=== PATIENT | male | born 2000 | race Caucasian/White ===

== ENCOUNTER 2018-06-09 11:43 | Inpatient (IN) ==
[2018-06-09] MEDS ORDERED: *HR* Midazolam HCl 2 MG/2 ML VIAL ONE (13:49)
[2018-06-09] MEDS ORDERED: Lidocaine -MPF 2% 2 ML VIAL ONE (13:49)
[2018-06-09] MEDS ORDERED: *HR* Propofol 200 MG/20 ML VIAL IVP ONE (13:49)
[2018-06-09] MEDS ORDERED: *HR* FentaNYL (PF) 100 MCG/2 ML VIAL ONE (13:49)
[2018-06-09] MEDS ORDERED: Ondansetron 4 MG/2 ML VIAL ONE (13:51)
[2018-06-09] MEDS ORDERED: Dexamethasone 4 MG/ML VIAL ONE (13:51)
[2018-06-09] MEDS ORDERED: Bupivacaine/EPI 1:200k 0.25%PF 10 ML VIAL INFILT ONE (13:55)
--- NOTE | 2018-06-09 13:58 | Anesthesia Evaluation PreOp ---
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 Other Medical History: Denies Any Significant HX Alcohol Use: none Drug use: none Medications and Allergies No Known Home Drugs 06/09/18 [History] Allergy/AdvReac Type Severity Reaction Status Date / Time No Known Allergies Allergy Verified 06/09/18 09:45 - Meds/Allergy Pre-op Review Medications Reviewed: Yes Allergies Reviewed: Yes Beta Blockers on Current Med List: No Anesthesia Results - Labs Laboratory Tests 06/09/18 06/09/18 11:05 11:05 Hgb 14.7 Hct 43.5 Plt Count 215 Sodium 140 Potassium 4.3 BUN 20 Creatinine 0.86 Anesthesia Exam Selected Entries 06/09/18 13:17 06/09/18 13:40 Temperature 98.7 F 97.6 F Pulse Rate 78 72 Respiratory Rate 18 16 Blood Pressure 128/78 120/71 O2 Sat by Pulse Oximetry 99 100 Weight: 78kg BMI23 - HEENT Pupil (Motor): EOMI Mallampati: II Teeth: Normal Oral Opening: Greater than 3 - PHYSICAL CHEMISTRY TEACHER LOC: Oriented PHYSICAL CHEMISTRY TEACHER Motor: Normal RUE, Normal LUE, Normal RLE, Normal LLE, Normal Face PHYSICAL CHEMISTRY TEACHER Sensory: Normal: RUE, LUE, RLE, LLE, Face - Cardiac Rhythm: Regular Murmur: None - Pulmonary Breath Sounds: bilateral Clear Respiratory Effort: Symmetrical Anesthesia Assess/Plan ASA Score: 1 Level of consciousness: Cooperative, Oriented, Tranquil Anesthetic Plan: General Monitoring Plan: Standard Monitors Recovery Plan: PACU (agrees to GA)
--- NOTE | 2018-06-09 14:06 | Podiatry Consult Note ---
Date of Encounter: 06/09/18 Time of Encounter: 13:15 Assessment and Plan (1) Open fracture Current visit: Yes Status: Acute I had a thorough review with the patient regarding his injury/condition, my findings, and his treatment options. We discussed the current condition of the toe and physical exam as well as his x-ray and the open fracture which is present. We discussed debridement of bone and soft tissue and amputation of the distal end of the right hallux which does not appear viable. He will continue IV antibiotics. Nature of the above procedure, risks first benefits potential complications consequences of surgery and his condition discussed at length including but not limited to infection bleeding swelling numbness tingling or loss of complete toe, partial foot or leg heart attack pulmonary embolism loss of functionality blood clot wound healing problems lack of procedure to produce desired outcome need for further surgery etc. We did discuss that he could require multiple trips to the operating room. He was also made aware that he will have a wound at the end of his toe which will need to heal. No guarantees were made as to the outcome of any procedure. All of his questions were answered and the informed consent was signed. Patient in agreement with treatment plan. Patient last ate or drank around 6:00 this morning. Patient being brought to the operating room for the above procedure. (2) Partial traumatic amputation of great toe Current visit: Yes Status: Acute see above History of Present Illness Chief complaint: right big toe injury HPI: Mr. Holt is a 17 year old male who denies a past medical history sustained an injury this morning at work at approximately 8:40 AM when a heavy piece of equipment was dropped on his foot. He says it hit the end of his foot and he had his shoe on. He did not have still toe boots on at the time. He says there was immediate pain and a lot of bleeding and he was brought to the emergency room in [place] by ambulance. X-rays were done and he was found to have an open fracture of the distal phalanx of the hallux and the ER had called me stating that the end of his toe was barely attached and that the bone was fractured. They put him in a bandage and transferred him to [facility]. Upon his arrival the nurse practitioner and myself went to examine him. He did receive IV antibiotics in [place]. Per ER he refused a tetanus shot. Patient relates he has numbness in the tip of the toe and he cannot feel the right big toe. Denies feeling like he has a fever, chills, nausea, vomiting, shortness of breath, chest pain. Past Med Surg Social Fam HX - Past Medical History Medical history: no medical history Additional medical history: right elbow fracture when patient was younger Psychiatric history: no psych history - Past Surgical History Surgical History: no surgical history - Social History Smoking Status: Light tobacco smoker Smokeless Tobacco Status: Yes Alcohol use: none Drug use: none - Family History Father Hx Family Endocrine Disorder: Yes (diabetes) Medications and Allergies No Known Home Drugs 06/09/18 [History] Allergy/AdvReac Type Severity Reaction Status Date / Time No Known Allergies Allergy Verified 06/09/18 09:45 All Systems Reviewed: The remainder of the systems were reviewed and are negative - Constitutional Constitutional: no fever(s) - Cardiovascular Cardiovascular: no chest pain, no dyspnea - Respiratory Respiratory: no cough - Musculoskeletal Musculoskeletal: numbness, tingling, other (pain right big toe) Additional comments: bleeding Physical Exam - Constitutional Vitals: Temp Pulse Resp BP Pulse Ox 97.6 F 72 16 120/71 100 06/09/18 13:40 06/09/18 13:40 06/09/18 13:40 06/09/18 13:40 06/09/18 13:40 General appearance: average body habitus, no acute distress - Head Head exam: Present: atraumatic - ENT ENT exam: Present: mucous membranes dry, mucous membranes moist - Respiratory Respiratory exam: Absent: respiratory distress, tachypnea - Cardiovascular Cardiovascular exam: Present: +S1, +S2 - Psychiatric Psychiatric exam: Present: normal affect, normal mood - Skin Skin Temperature: right big toe is cool to touch - Vascular Capillary Refill: Sluggish (to distal tip of right big toe) - Ankle & Foot Exam: Well-developed and nourished male in distress Capillary refill time is intact to the right for lesser digits and is instantaneous. The hallux distal tip has bluish discoloration and a sluggish capillary refill time. The hallux has a very small attachment of skin on the plantar aspect of the foot with laceration extending around the distal tuft of the right hallux and exposed bone of the distal phalanx. No purulence is expressed. There is cyanotic appearance of the distal tissue which is not attached proximally at the margins of skin. Sensation is absent to touch in the right hallux. There is bleeding present at the distal tip of the right hallux and bandage was saturated. Results - Labs Labs: All other labs normal. Consult Discharge Plan - Plan Referrals: NONE,PCP [Primary Care Provider] -
--- NOTE | 2018-06-09 14:20 | Operative Note ---
Date of procedure: 06/09/18 Pre-op diagnosis: open fracture right great toe, partial traumatic amputation of hallux Post-op diagnosis: same Procedure: Partial amputation of right great toe at the interphalangeal joint level excisional debridement of soft tissue and bone right hallux Implants: none Complications: none Anesthesia: GETA Local Anesthetics: 1% Lidocaine HCL SubQ (cc) Surgeon: Emir Ramos Was there an showroom sales assistant present: No Estimated blood loss (cc): 20 Specimen: right great toe soft tissue and bone-micro and path, culture swab- micro Condition: stable Disposition: PACU Procedure in Detail: Indications: 17-year-old male injured at work with a partially amputated hallux and open fracture of the right hallux distal phalanx being brought to the operating room for partial amputation of the right hallux and debridement of tissue and possibly bone. Nature of the procedures, risks versus benefits potential complications and consequences of surgery and his condition discussed at length. No guarantees were made as to the outcome. He understood that he could require multiple trips to the operating room and his hallux may not be salvageable. All of his questions have been answered informed consent was signed. Patient taken from the preoperative holding area and operating room placed in the operating room table in the supine position. 15 mL of 1% lidocaine plain was injected into the patient's right foot. An ankle tourniquet was applied but not inflated during the entire procedure. The right foot was scrubbed prepped and draped in the usual sterile fashion Amputation right hallux at the level of the interphalangeal joint right foot. Attention was directed to the distal aspect of the patient's right hallux where the toe was partially amputated due to the injury. The nail plate was completely destroyed and dislodged and the distal aspect of the toe was barely hanging on by a small piece of soft tissue plantar laterally. There was bleeding from the proximal site. The distal aspect of the hallux was cold and had some discoloration. The 15 blade was used to resect the distal end of the hallux and a piece was sent to microbiology and the rest to pathology. Bone was debrided from the fracture zone and smoothed with a rasp. The site was irrigated with saline which contained vancomycin. The distal aspect of the toe had been amputated as well as surrounding margins of skin. Debridement of deep tissue and tendon. With the distal aspect of the hallux amputated the open wound from the traumatic injury had some evidence of nonviable tissue which was debrided sharply with a #15 blade until there was healthy bleeding tissue. The flexor and extensor tendon was resected as far proximally in the wound as possible. The Bovie was used to cauterize bleeding tissue. Upon reinspection after flushing the site the remaining tissue appeared to be viable and healthy as were the skin margins which did exhibit bleeding. No purulent drainage was able to be expressed. A retention suture using 3-0 Prolene was placed and the site was packed open with gauze. Postoperative bandaging included Adaptic, 4 x 4 gauze and Kerlix. The patient tolerated the anesthesia and the procedure well escorted to the recovery room with vital signs stable and vascular status intact to the remaining hallux and lesser digits. Patient will return to the floor where he will continue IV antibiotics.
[2018-06-09] MEDS ORDERED: EPHEDrine 50 MG/ML VIAL ONE (14:36)
[2018-06-09] MEDS ORDERED: Vancomycin 1,000 MG VIAL ONE (14:42)
[2018-06-09] MEDS ORDERED: *HR* HYDROcodone/Acet 5/325 mg TABLET PO PRN ×2 (14:58→16:17)
[2018-06-09] MEDS ORDERED: CeFAZolin Syr 2,000MG/20 ML 2,000 MG/20 ML SYRINGE IVPB ONE (15:12)
[2018-06-09] MEDS ORDERED: Naloxone 0.4 MG/ML INJ IVP PRN ×2 (15:53→16:17)
--- NOTE | 2018-06-09 15:59 | Internal Med History&Physical ---
<Jay Velázquezuma - Last Filed: 06/09/18 15:56> Date of Encounter: 06/09/18 Time of Encounter: 15:57 Internal Medicine - H&P: HPI Chief complaint: Right big toe injury Admitted From: Emergency Dept Plans for Post Hospital Care: Home History of present illness: Mr. Holt is a 17 year old male presented chief complaint right big toe injury to [facility]. Patient was working with a heavy equipment when he fell on his right foot and he had immediate pain. He was brought to [place] emergency department and x-rays found soft tissue defect at the distal first toe with open, displaced oblique fracture of the first distal phalangeal tuft. Patient was evaluated by podiatry and was quickly transferred to [facility] for surgery. He underwent partial amputation of the right great toe and excisional debridement of soft tissue and bone right hallux. He received cefoxitin and [place] emergency department. He refuses tetanus shot. During my evaluation patient was in the PACU. He was still heavily sedated and I could not ask many questions. Past Med Surg Social Fam HX - Past Medical History Medical history: no medical history Additional medical history: right elbow fracture when patient was younger Psychiatric history: no psych history - Past Surgical History Surgical History: no surgical history - Social History Smoking Status: Light tobacco smoker Smokeless Tobacco Status: Yes Alcohol use: none Drug use: none - Family History Father Hx Family Endocrine Disorder: Yes (diabetes) Internal Medicine - H&P: Meds RX: No Known Home Drugs 06/09/18 [History] Allergy/AdvReac Type Severity Reaction Status Date / Time No Known Allergies Allergy Verified 06/10/18 08:18 All Systems PM: A 10-system review of systems was performed and is negative for pertinent findings except as documented above in the HPI. Review of systems: Did not get review systolic patient was sedated after surgery. - Constitutional Vitals: Temp Pulse Resp BP Pulse Ox 98.2 F 75 13 97/44 94 06/09/18 15:47 06/09/18 15:47 06/09/18 15:47 06/09/18 15:47 06/09/18 15:47 Exam: General: Sedated after surgery HEENT: Head atraumatic, normocephalic, absent ear discharge or trauma, Moist Mucous Membranes, uvula midline Neck: nontender to palpation, absent lymphadenopathy, Cardiovascualr: Regular rate and rhythm with no murmur, absent gallops or rubs, absent pedal edema, radial pulses 2 out of 4 Lungs: Clear to auscultation bilaterally, not in respiratory distress Abdomen: Soft nontender, nondistended positive bowel sounds, absent hepatomegaly Skin: warm and dry, absent rash, absent open wounds and nodules MSK: absent clubbing, cyanosis, joints without swelling. Right foot and a bandage Neuro: Patient is sedated could not examine Psych: Patient is sedated cannot be examined. - Assessment and Plan (1) Open fracture Current Visit: Yes Status: Acute Assessment and plan: Patient had right toe open fracture Status post partial right toe amputation. Surgical biopsy, Gram stain and anaerobic and aerobic cultures were obtained He did not meet SIRS criteria He received cefoxitin and [place] emergency room and cefazolin during surgery. Plan: We will continue monitor vitals and repeat CBC and BMP. If patient has sinus infection or surgical cultures are positive will start antibiotics. (2) DVT prophylaxis Current Visit: Yes Status: Acute Assessment and plan: Hypertensive subcutaneous. - Time Spent With Patient Total time spent is greater than 50% in coordination of care (as documented) at patient's floor/unit and/or counseling patient: <Celeste Parham Cisco - Last Filed: 06/11/18 15:57> Date of Encounter: 06/09/18 Internal Medicine - H&P: HPI History of present illness: Mr. Holt is a 17 year old male All Systems PM: A 10-system review of systems was performed and is negative for pertinent findings except as documented above in the HPI. - Constitutional Vitals: Temp Pulse Resp BP Pulse Ox 98.0 F 86 17 112/69 100 06/11/18 11:34 06/11/18 11:34 06/11/18 11:34 06/11/18 11:34 06/11/18 11:34 Internal Med - H&P Results - Labs CBC & Chem 7: 06/11/18 06:51 06/10/18 06:10 Labs: Short CBC 06/11/18 Range/Units 06:51 WBC 9.7 (4.3-11.1) K/mcL Hgb 13.9 (12.9-16.9) g/dL Hct 39.8 (37.5-50.1) % Plt Count 181 (140-400) K/mcL - Impressions ITS Impressions Foot X-Ray 06/09/18 16:58 IMPRESSION: Status post partial amputation the distal phalanx of the right great toe. D/ / Juliann Mejia Cha, MD / Juliann Mejia Cha, MD Interpreting Provider: Juliann Mejia Cha, MD - Time Spent With Patient Total time spent is greater than 50% in coordination of care (as documented) at patient's floor/unit and/or counseling patient: - Attending Attestation I saw and evaluated the patient. The case was discussed on rounds with . I personally reviewed the HPI, PH, FH, SH, ROS and medications. I repeated pertinent portions of the examination and reviewed the relevant imaging and laboratory data. I agree with the findings, assessment and plan as documented. At this time, based on the current clinical condition and treatment.
--- NOTE | 2018-06-09 16:32 | Anesthesia Evaluation Post Op ---
Date of Encounter: 06/09/18 Time of Encounter: 16:00 - Vital Signs Vital Signs: Vital Signs/O2 Sat/Glucose, Most Current Temp Pulse Resp BP Pulse Ox 06/09/18 16:15 97.8 F 85 12 104/58 96 06/09/18 15:47 98.2 F 75 13 97/44 94 06/09/18 15:37 98.2 F 72 17 105/49 94 06/09/18 15:27 74 13 96/45 93 06/09/18 15:17 68 13 89/42 98 06/09/18 15:07 97.4 F L 70 12 85/46 99 06/09/18 13:17 98.7 F 78 18 128/78 99 - Lungs Lungs: Clear Ascult./Percussion - Airway Airway: Non-obstructed - Cardiovascular Regular Rate - Mental Status Mental Status: Alert & Oriented, Answers Appropriately - Pain Pain Scale: 0 - Nausea Vomiting Nausea Vomiting: Not Present - Hydration Hydration: Ice chips - Discharge PostOp Status: Transfer Patient to floor
[2018-06-09] MEDS: Ketorolac 15 MG/ML VIAL IVP PRN (20:58)
[2018-06-09] MEDS ORDERED: *HR* Heparin 5,000 UNIT/ML VIAL SQ SCH (22:00)
[2018-06-09] MEDS: ceFAZolin 2,000 MG in 0.9 % Sodium Chloride 100 ML IVPB SCH (22:36)
[2018-06-09] MEDS: *HR* OxyCODONE/APAP 5/325 TABLET PO PRN (23:02)
[2018-06-10] MEDS ORDERED: ceFAZolin 2,000 MG in 0.9 % Sodium Chloride 100 ML IVPB SCH
[2018-06-10] MEDS: Ketorolac 15 MG/ML VIAL IVP PRN (02:47)
[2018-06-10 06:32] LABS: Basophils % 0.2 %; Hematocrit 40.6 % (37.5-50.1); Hemoglobin 14.1 g/dL (12.9-16.9); Immature Granulocytes % 0.5 % (0-4); Lymphocytes # 1.2 K/mcL (0.6-4.6); Lymphocytes % 6.7 %; Mean Corpuscular HGB Conc 34.7 g/dL (31.6-35.5); Mean Corpuscular Hemoglobin 30.7 pg (28.0-33.3); Mean Corpuscular Volume 88.5 fL (83.0-100.0); Mean Platelet Volume 10.2 fL (9.4-12.4); Monocytes # 0.8 K/mcL (0.0-1.3); Monocytes % 4.6 %; Neutrophils # 15.1 K/mcL (1.6-8.9); Platelet Count 232 K/mcL (140-400); Red Blood Count 4.59 M/mcL (4.19-5.50); Red Cell Distribution Width 11.8 % (11.5-14.5)
[2018-06-10 06:51] LABS: BUN/Creatinine Ratio 25 (6-26); Blood Urea Nitrogen 17 mg/dL (6-20); Calcium 9.2 mg/dL (8.6-10.3); Carbon Dioxide 25 mEq/L (23-29); Chloride 102 mEq/L (98-107); Glucose 138 mg/dL (70-105); Osmolality,Calculated 286 (280-300); Potassium 4.3 mEq/L (3.5-5.1); Sodium 136 mEq/L (136-145); eGFR For Non-African Americans > 60
[2018-06-10] MEDS: *HR* OxyCODONE/APAP 5/325 TABLET PO PRN ×2 (09:02→20:58)
[2018-06-10] MEDS: ceFAZolin 2,000 MG in 0.9 % Sodium Chloride 100 ML IVPB SCH ×2 (09:13→16:48)
[2018-06-10] MEDS ORDERED: *HR* OxyCODONE/APAP 10/325 TABLET PO ONE (10:02)
--- NOTE | 2018-06-10 10:06 | Podiatry Progress Note ---
Date of Encounter: 06/10/18 Time of Encounter: 10:03 - Assessment and Plan (1) Partial traumatic amputation of right great toe Current Visit: Yes Status: Acute Assessment: S/P Partial amputation of right great toe at the interphalangeal joint level, excisional debridement of soft tissue, and bone right hallux 06/09/[address] Ramos Incision noted with skin flap Moderate amount of sanguineous drainage noted Minimal erythema noted 2/4 edema noted to right foot/digit Pain with palpation of right midfoot WBC 17.2 Surgical cultures pending Anaerobic cultures pending Plan: Cleansed incision and wound with 0.9 NS Packed open ulcer lightly with 1/4 gauze Covered with adaptic, 4x4 dry gauze, ABD, kerlix, and YANA bandage Plan for staged procedure of wound closure, dependent upon clinical picture Do not change dressing. Can reinforce as needed. Will continue to follow Qualifiers: Encounter type: subsequent encounter Qualified Code(s): S98.121D - Partial traumatic amputation of right great toe, subsequent encounter (2) Open fracture of right great toe Current Visit: Yes Status: Acute Assessment/plan: See above Qualifiers: Encounter type: subsequent encounter Phalanx: distal Fracture alignment: displaced Fracture healing: with delayed healing Qualified Code(s): S92.421G - Displaced fracture of distal phalanx of right great toe, subsequent encounter for fracture with delayed healing Subjective Interval history: Patient awake in bed. Girlfriend at bedside. Reports pain 10/10. States pain radiates to midfoot and right lateral foot. Reports no relief with pain medication. Denies fevers, chills, nausea, vomiting, diarrhea. Denies calf pain, chest pain, or shortness of breath. Discussed need for staged surgery for wound closure. Patient verbalized understanding. No other questions or concerns at this time. Objective - Vital Signs Vital Signs: Vital Signs Temp Pulse Resp BP Pulse Ox 06/10/18 08:38 98.1 F 66 16 115/66 96 06/10/18 08:18 97.9 F 74 16 113/64 96 06/10/18 02:47 98.6 F 74 16 118/67 97 06/10/18 00:50 98.6 F 79 16 115/58 96 06/09/18 19:54 98.9 F 83 16 133/67 97 06/09/18 19:21 98.4 F 85 14 117/70 97 06/09/18 18:17 98.5 F 93 108/65 96 06/09/18 17:26 98.5 F 94 16 109/61 96 06/09/18 16:51 98.6 F 81 14 124/77 98 06/09/18 16:15 97.8 F 85 12 104/58 96 06/09/18 15:47 98.2 F 75 13 97/44 94 06/09/18 15:37 98.2 F 72 17 105/49 94 06/09/18 15:27 74 13 96/45 93 06/09/18 15:17 68 13 89/42 98 06/09/18 15:07 97.4 F L 70 12 85/46 99 06/09/18 13:17 98.7 F 78 18 128/78 99 Intake and Output 06/09/18 06/10/18 06/10/18 23:59 07:59 15:59 Intake Total 150 / 150 50 / 50 Output Total 350 / 350 Balance -200 / -200 50 / 50 Intake: IV Fluids 100 / 100 Ancef 2,000 MG In 0.9 % Sodium 100 / 100 Chloride 100 ML @ 200 mls/hr IVPB Q8H [facility] Rx#:[id number] Oral 50 / 50 50 / 50 Output: Urine 350 / 350 Other: # Voids 1 1 Weight 78.9 kg Patient Weight 06/10/18 23:59 Weight 78.9 kg - Exam Exam: Constitiutional: Alert and oriented x 3. Well nourished. No acute distress noted Vascular: 3/4 DP/PT RLE, CFT <3 sec to all digits RLE, warm to warm from tibia to toes RLE, no calf pain with squeeze RLE Neurologic: Sensation to touch, able to move all digits right foot minimally Dermatologic: Incision noted to right great toe amputation site with skin flap, large amount of sanguinous drainage noted to dressing. 2/4 edema noted to right foot/digit. Minimal erythema noted, no streaking noted. Musculoskeletal: 3/5 muscle strength and normal tone bilaterally. - Lab Result Diagrams: 06/10/18 06:10 06/10/18 06:10 Labs: Abnormal lab results WBC 17.2 K/mcL (4.3-11.1) H D 04/05/19 06:10 Neutrophils # 15.1 K/mcL (1.6-8.9) H 06/10/18 06:10 Creatinine 0.69 mg/dL (0.70-1.30) L 06/10/18 06:10 Glucose 138 mg/dL (70-105) H 06/10/18 06:10 Microbiology, Last 48 Hours 06/09/18 15:16 Surgical Biopsy Culture - Preliminary Right Foot 06/09/18 15:16 Anaerobic Culture - Preliminary Right Foot Culture is incubating. 06/09/18 15:16 Surgical Biopsy Culture - Preliminary Right Foot 06/09/18 15:16 Anaerobic Culture - Preliminary Right Foot Culture is incubating. Consult Discharge Plan - Plan Referrals: NONE,PCP [Primary Care Provider] -
--- NOTE | 2018-06-10 10:12 | Internal Med Progress Note ---
Hospitalist Progress Note - Encounter Date of Encounter: 06/10/18 Time of Encounter: 10:12 - Subjective Interval History: patient seen and examined this morning at bedside. No overnight events. Complain of 6/10 pain on Rt toe. No overnight fevers. - Exam Vitals: Temp Pulse Resp BP Pulse Ox 98.1 F 66 16 115/66 96 06/10/18 08:38 06/10/18 08:38 06/10/18 08:38 06/10/18 08:38 06/10/18 08:38 Exam: General: NAD Cardiovascualr: RRR, no MRG Lungs: CTAB. No adventitious sounds Abdomen: Soft nontender, nondistended MSK: Right foot and a bandage. Just had dressing done. Neuro: no focal deficits - Summary of Assessment and Plan Summary of Assessment and Plan: Open fracture of rt toe after injury at work - s/p Partial traumatic amputation of right great toe at interphallangeal joint level - f/u Surgical cultures - c/w antibiotics for now. - Plan for staged procedure - c/w pain regimen of toradol 15 mg q6hr, pecocet q6hprn - Time Spent with Patient Total time spent is greater than 50% in coordination of care (as documented) at patient's floor/unit and/or counseling patient: Internal Medicine: Result - Labs CBC & Chem 7: 06/10/18 06:10 06/10/18 06:10 Labs: Short CBC 06/10/18 Range/Units 06:10 WBC 17.2 H D (4.3-11.1) K/mcL Hgb 14.1 (12.9-16.9) g/dL Hct 40.6 (37.5-50.1) % Plt Count 232 (140-400) K/mcL Neutrophils # 15.1 H (1.6-8.9) K/mcL BMP 06/10/18 06:10 Sodium 136 Potassium 4.3 Chloride 102 Carbon Dioxide 25 BUN 17 Creatinine 0.69 L Glucose 138 H Calcium 9.2 - Impressions Impressions Foot X-Ray 06/09/18 16:58 IMPRESSION: Status post partial amputation the distal phalanx of the right great toe. D/ / Juliann Mejia Cha, MD / Juliann Mejia Cha, MD Interpreting Provider: Juliann Mejia Cha, MD Consult Discharge Plan - Plan Referrals: NONE,PCP [Primary Care Provider] -
[2018-06-11] MEDS: ceFAZolin 2,000 MG in 0.9 % Sodium Chloride 100 ML IVPB SCH ×3 (00:47→16:50)
[2018-06-11 07:19] LABS: Hematocrit 39.8 % (37.5-50.1); Hemoglobin 13.9 g/dL (12.9-16.9); Mean Corpuscular HGB Conc 34.9 g/dL (31.6-35.5); Mean Corpuscular Volume 88.8 fL (83.0-100.0); Mean Platelet Volume 10.3 fL (9.4-12.4); Platelet Count 181 K/mcL (140-400); Red Blood Count 4.48 M/mcL (4.19-5.50); Red Cell Distribution Width 11.9 % (11.5-14.5)
[2018-06-11] MEDS: *HR* OxyCODONE/APAP 5/325 TABLET PO PRN ×2 (07:24→13:36)
--- NOTE | 2018-06-11 07:46 | Internal Med Progress Note ---
Hospitalist Progress Note - Encounter Date of Encounter: 06/11/18 Time of Encounter: 07:45 - Subjective Interval History: Patient seen and examined this morning at bedside. No acute overnight events. Remains afebrile. Pain is not controlled completely. Currently 10/15. Denies any nausea vomiting or diarrhea. - Exam Vitals: Temp Pulse Resp BP Pulse Ox 98.2 F 61 16 130/75 98 06/11/18 07:19 06/11/18 07:19 06/11/18 07:19 06/11/18 07:19 06/11/18 07:19 Exam: General: NAD Cardiovascualr: RRR, no MRG Lungs: CTAB. No adventitious sounds Abdomen: Soft nontender, nondistended MSK: Right foot and a bandage. Just had dressing done. Neuro: no focal deficits - Summary of Assessment and Plan Summary of Assessment and Plan: Open fracture of rt toe after injury at work - s/p Partial traumatic amputation of right great toe at interphallangeal joint level with skin flap - f/u Surgical cultures - c/w antibiotics for now. Dressing change per Podiatry. - Plan for staged procedure. on wednesday. - c/w pain regimen adjusted with IV tylenol, chantale toradol and prn oxycodone. - Time Spent with Patient Total time spent is greater than 50% in coordination of care (as documented) at patient's floor/unit and/or counseling patient: Internal Medicine: Result - Labs CBC & Chem 7: 06/11/18 06:51 06/10/18 06:10 Labs: Short CBC 06/11/18 Range/Units 06:51 WBC 9.7 (4.3-11.1) K/mcL Hgb 13.9 (12.9-16.9) g/dL Hct 39.8 (37.5-50.1) % Plt Count 181 (140-400) K/mcL Consult Discharge Plan - Plan Referrals: NONE,PCP [Primary Care Provider] -
[2018-06-11] MEDS: Ketorolac 15 MG/ML VIAL IVP PRN (08:48)
[2018-06-11] MEDS ORDERED: OXYCODONE Oral CONC 10 MG/0.5 ML ORAL.SYG SL PRN (15:15)
[2018-06-11] MEDS: Ketorolac 15 MG/ML VIAL IVP SCH (16:51)
[2018-06-11] MEDS: Acetaminophen IV 1,000 MG/100 ML INFUS..BTL IVPB SCH (19:10)
[2018-06-12] MEDS: Acetaminophen IV 1,000 MG/100 ML INFUS..BTL IVPB SCH ×4 (00:06→17:44)
[2018-06-12] MEDS: ceFAZolin 2,000 MG in 0.9 % Sodium Chloride 100 ML IVPB SCH ×4 (00:06→23:58)
[2018-06-12] MEDS: Ketorolac 15 MG/ML VIAL IVP SCH ×2 (00:06→09:33)
--- NOTE | 2018-06-12 10:35 | Podiatry Progress Note ---
Date of Encounter: 06/12/18 Time of Encounter: 09:20 - Assessment and Plan (1) Open fracture Current Visit: Yes Status: Inactive resting in bed. says he feels fine. does report right foot pain. denies f/c/n/v/sob/cp. right foot retention suture intact. wound base is granular. no purulence. no erythema of the skin. discussed condition and treatment plan with patient and current culture results.. discussed right foot washout and delayed closure of surgical wound left foot. nature of procedure, risks vs benefits potential complications and consequences of surgery and condition. no guarantees made as to the outcome or that the remainder of his right big toe will be able to be salvaged. added on to OR tomorrow. NPO after 8am (breakfast) tomorrow. all questions answered and informed consent was signed. (2) Partial traumatic amputation of great toe Current Visit: Yes Status: Inactive see above Objective - Vital Signs Vital Signs: Vital Signs Temp Pulse Resp BP Pulse Ox 06/12/18 07:43 98.4 F 77 14 111/71 98 06/11/18 23:44 98.6 F 71 14 107/52 96 06/11/18 18:40 98.7 F 72 16 121/76 98 06/11/18 17:00 98.6 F 62 16 105/63 97 06/11/18 11:34 98.0 F 86 17 112/69 100 Intake and Output 06/11/18 06/12/18 06/12/18 23:59 07:59 15:59 Intake Total 440 / 440 300 / 300 Balance 440 / 440 300 / 300 Intake: IV Fluids 200 / 200 300 / 300 Ofirmev 1,000 mg/100 ml 1,000 100 / 100 200 / 200 mg In 100 ml @ 400 mls/hr IVPB Q6HR [facility] Rx#:[id number] Ancef 2,000 MG In 0.9 % Sodium 100 / 100 100 / 100 Chloride 100 ML @ 200 mls/hr IVPB Q8HR [facility] Rx#:[id number] Oral 240 / 240 0 / 0 Other: Meal Dinner Percent of Meal Consumed 100% # Voids 1 1 Weight 78.3 kg Patient Weight 06/12/18 23:59 Weight 78.3 kg - Lab Result Diagrams: 06/11/18 06:51 06/10/18 06:10 Labs: Abnormal lab results Neutrophils # 15.1 K/mcL (1.6-8.9) H 06/10/18 06:10 Creatinine 0.69 mg/dL (0.70-1.30) L 06/10/18 06:10 Glucose 138 mg/dL (70-105) H 06/10/18 06:10 Microbiology, Last 48 Hours 06/09/18 15:16 Surgical Biopsy Culture - Preliminary Right Foot Gram Positive Cocci Gram Positive Cocci#2 06/09/18 15:16 Surgical Biopsy Culture - Preliminary Right Foot Gram Positive Cocci Consult Discharge Plan - Plan Referrals: NONE,PCP [Primary Care Provider] -
[2018-06-12] MEDS ORDERED: Ketorolac 15 MG/ML VIAL IVP PRN (11:53)
--- NOTE | 2018-06-12 14:14 | Internal Med Progress Note ---
Hospitalist Progress Note - Encounter Date of Encounter: 06/12/18 Time of Encounter: 09:24 - Subjective Interval History: Reason seen and examined this morning at bedside. No Acute overnight events. Denies any pain fever or chills. Denies any diarrhea. - Exam Vitals: Temp Pulse Resp BP Pulse Ox 98.1 F 62 15 109/68 96 06/12/18 12:37 06/12/18 12:37 06/12/18 12:37 06/12/18 12:37 06/12/18 12:37 Exam: General: NAD Cardiovascualr: RRR, no MRG Lungs: CTAB. No adventitious sounds Abdomen: Soft nontender, nondistended MSK: Right foot and a bandage. Neuro: no focal deficits - Summary of Assessment and Plan Summary of Assessment and Plan: Open fracture of rt toe after injury at work - s/p Partial traumatic amputation of right great toe at interphallangeal joint level with skin flap - Plan right foot washout and delayed closure of surgical wound left foot tomorrow. NPO after breakfast tomorrow. - Surgical cultures growing gram positive cocci. c/w cefazolin as patient afebrile and without signs of sepsis. Dressing changes per Podiatry. - c/w IV tylenol, change toradol prn and prn oxycodone. - Time Spent with Patient Total time spent is greater than 50% in coordination of care (as documented) at patient's floor/unit and/or counseling patient: Internal Medicine: Result - Labs CBC & Chem 7: 06/11/18 06:51 06/10/18 06:10 Consult Discharge Plan - Plan Referrals: NONE,PCP [Primary Care Provider] -
[2018-06-13] MEDS: ceFAZolin 2,000 MG in 0.9 % Sodium Chloride 100 ML IVPB SCH ×3 (07:28→23:57)
--- NOTE | 2018-06-13 08:13 | Internal Med Progress Note ---
Hospitalist Progress Note - Encounter Date of Encounter: 06/13/18 Time of Encounter: 07:20 - Subjective Interval History: Patient seen and examined this morning at bedside. No acute overnight events. Denies new complaints. Pain is controlled. Denies any diarrhea or nausea or vomiting. - Exam Vitals: Temp Pulse Resp BP Pulse Ox 98.3 F 64 18 100/60 97 06/13/18 06:40 06/13/18 06:40 06/13/18 06:40 06/13/18 06:58 06/13/18 06:40 Exam: General: NAD Cardiovascualr: RRR, no MRG Lungs: CTAB. No adventitious sounds Abdomen: Soft nontender, nondistended MSK: Right foot and a bandage. Neuro: no focal deficits - Summary of Assessment and Plan Summary of Assessment and Plan: Open fracture of rt toe after injury at work - s/p Partial traumatic amputation of right great toe at interphallangeal joint level with skin flap - Plan right foot washout and delayed closure of surgical wound left foot today. NPO after breakfast tomorrow. - Surgical cultures growing staph simulans/epidermitidis. c/w cefazolin now july. Maldonado stop after surgery - c/w IV tylenol, change toradol prn and prn oxycodone. - Time Spent with Patient Total time spent is greater than 50% in coordination of care (as documented) at patient's floor/unit and/or counseling patient: Internal Medicine: Result - Labs CBC & Chem 7: 06/11/18 06:51 06/10/18 06:10 Consult Discharge Plan - Plan Referrals: NONE,PCP [Primary Care Provider] -
--- NOTE | 2018-06-13 10:17 | Electrocardiograph Report ---
[address] [place], [place] [address] Test Date: 2018-06-12 Pat Name: Benjamin Holt Department: 114 Room: [facility] Gender: M Program Management Manager: : 2000 Requested By: Zuleyka Choi Order Number: [id number] Reading MD: Rayray Wong Measurements Intervals Aurora Rate: 67 P: 60 ME: 143 QRS: 83 QRSD: 94 T: 47 QT: 381 QTc: 396 Interpretive Statements SINUS RHYTHM WITH SINUS ARRHYTHMIA INCOMPLETE RIGHT BUNDLE BRANCH BLOCK Electronically Signed On 06-13-2018 10:15:40 EDT by Rayray Wong
--- NOTE | 2018-06-13 15:46 | Podiatry Progress Note ---
Date of Encounter: 06/13/18 Time of Encounter: 14:20 Subjective Interval history: Patient is alert and oriented x 3, no acute distress, sitting in bed playing on phone. Patient denies any chest pain, shortness of breath, or calf pain. He denies any fever, chills, nausea, vomiting, or diarrhea. He reports he last ate at 0630 this am. He denies any additional questions regarding his upcoming surgery. Recommend ID consult, antibiotic recommendations greatly appreciated. [facility] Dr. Ramos after he is discharged. He is in agreement with plan of care. Surgery planned for later today Objective - Vital Signs Vital Signs: Vital Signs Temp Pulse Resp BP Pulse Ox 06/13/18 10:41 98.1 F 70 16 104/66 96 06/13/18 06:58 100/60 06/13/18 06:40 98.3 F 64 18 91/52 97 06/13/18 00:03 98.1 F 68 17 125/69 97 06/12/18 19:37 98.7 F 78 18 113/67 97 06/12/18 17:24 97.9 F 71 14 117/72 97 Intake and Output 06/12/18 06/13/18 06/13/18 23:59 07:59 15:59 Intake Total 100 / 100 200 / 200 220 / 220 Balance 100 / 100 200 / 200 220 / 220 Intake: IV Fluids 100 / 100 200 / 200 100 / 100 Ancef 2,000 MG In 0.9 % Sodium 100 / 100 100 / 100 100 / 100 Chloride 100 ML @ 200 mls/hr IVPB Q8HR [facility] Rx#:[id number] Oral 120 / 120 Other: Meal Dinner Breakfast Percent of Meal Consumed 0% 95% Weight 78.5 kg Patient Weight 06/13/18 23:59 Weight 78.5 kg - Lab Result Diagrams: 06/11/18 06:51 06/10/18 06:10 Labs: Abnormal lab results Neutrophils # 15.1 K/mcL (1.6-8.9) H 06/10/18 06:10 Creatinine 0.69 mg/dL (0.70-1.30) L 06/10/18 06:10 Glucose 138 mg/dL (70-105) H 06/10/18 06:10 Microbiology, Last 48 Hours 06/09/18 15:16 Surgical Biopsy Culture - Preliminary Right Foot Staphylococcus species 06/09/18 15:16 Surgical Biopsy Culture - Final Right Foot Staphylococcus simulans Staphylococcus epidermidis 06/09/18 15:16 Anaerobic Culture - Preliminary Right Foot At this time, no anaerobic growth is present. The culture will be finalized after 5 days of incubation. 06/09/18 15:16 Anaerobic Culture - Preliminary Right Foot At this time, no anaerobic growth is present. The culture will be finalized after 5 days of incubation. Consult Discharge Plan - Plan Referrals: NONE,PCP [Primary Care Provider] -
[2018-06-13] MEDS ORDERED: Bupivacaine/EPI 1:200k 0.25%PF 10 ML VIAL INFILT ONE (16:27)
[2018-06-13] MEDS ORDERED: *HR* Midazolam HCl 2 MG/2 ML VIAL ONE (16:45)
[2018-06-13] MEDS ORDERED: *HR* FentaNYL (PF) 100 MCG/2 ML VIAL ONE (16:45)
[2018-06-13] MEDS ORDERED: *HR* Propofol 200 MG/20 ML VIAL IVP ONE (16:45)
[2018-06-13] MEDS ORDERED: Lidocaine -MPF 2% 2 ML VIAL ONE (16:46)
[2018-06-13] MEDS ORDERED: Albuterol 2.5 MG/3 ML NEBULIZER IH ONE ×2 (16:51→18:29)
--- NOTE | 2018-06-13 16:55 | Anesthesia Evaluation PreOp ---
Date of Encounter: 06/13/18 Time of Encounter: 16:53 - Past History Planned Operation: Delayed closure of Right big toe wound Cardiac History: Denies any Significant Hx Pulmonary History: Smoker [place]ARCH [place]OOKER History: Denies Any Significant HX Other Medical History: Denies Any Significant HX Anesthesia History: No Prior Anesthetic Complications, Past Anesthesia (R big toe) Alcohol Use: none Drug use: none Medications and Allergies No Known Home Drugs 06/09/18 [History] Allergy/AdvReac Type Severity Reaction Status Date / Time No Known Allergies Allergy Verified 06/10/18 08:18 - Meds/Allergy Pre-op Review Medications Reviewed: Yes Allergies Reviewed: Yes Beta Blockers on Current Med List: No Anesthesia Results - Labs 06/11/18 06:51 06/10/18 06:10 Anesthesia Exam Vital Signs/O2 Sat, Most Current Temp Pulse Resp BP Pulse Ox 98.5 F 66 16 100/64 97 06/13/18 16:11 06/13/18 16:11 06/13/18 16:11 06/13/18 16:11 06/13/18 16:11 Weight: 78kg NPO (# of Hours): >8 - HEENT Pupil (Motor): Pupils equal, EOMI Mallampati: II Teeth: Normal Oral Opening: Greater than 3 - [place]OOKER LOC: Oriented [place] Motor: Normal RUE, Normal LUE, Normal RLE, Normal LLE, Normal Face [place] Sensory: Normal: RUE, LUE, RLE, LLE, Face - Cardiac Rhythm: Regular - Pulmonary Breath Sounds: bilateral Clear Respiratory Effort: Symmetrical Anesthesia Assess/Plan ASA Score: 2 Level of consciousness: Cooperative Anesthetic Plan: General Monitoring Plan: Standard Monitors Recovery Plan: PACU
[2018-06-13] MEDS ORDERED: Vancomycin 1,000 MG VIAL ONE (17:01)
[2018-06-13] MEDS ORDERED: Ondansetron 4 MG/2 ML VIAL IVP ONE ×2 (17:05→18:29)
[2018-06-13] MEDS ORDERED: *HR* Promethazine 25 MG/ML VIAL IVP PRN ×2 (17:05→18:29)
[2018-06-13] MEDS ORDERED: *HR* OxyCODONE Immed Rel 5 MG TABLET PO PRN ×2 (17:05→18:29)
[2018-06-13] MEDS ORDERED: *HR* Meperidine 25 MG/ML SYRINGE IVP PRN (17:05)
[2018-06-13] MEDS ORDERED: *HR* Morphine 2 MG/ML SYRINGE IVP PRN (17:05)
[2018-06-13] MEDS ORDERED: Ipratropium/Albuterol Neb 3 ML ONE (17:10)
[2018-06-13] MEDS ORDERED: Dexamethasone 4 MG/ML VIAL ONE (17:34)
--- NOTE | 2018-06-13 17:57 | Operative Note ---
Date of procedure: 06/13/18 Pre-op diagnosis: open fracture wound/surgical wound partial amputation right hallux Post-op diagnosis: same Procedure: delayed primary closure right hallux surgical wound Implants: none Complications: none Anesthesia: GETA Local Anesthetics: 1% Lidocaine HCL SubQ (cc) Surgeon: Emir Ramos Was there an engineering inspection assistant present: No Estimated blood loss (cc): 3 Specimen: none Condition: stable Disposition: PACU Procedure in Detail: Indications: 17-year-old male with open fracture of the right hallux previously treated with a partial amputation left open to drain. The surgical wound measured [id number]. Patient received 72 hours of IV antibiotics. He had no drainage, no cellulitis and wound was dry. Nature of the above procedure, risks versus benefits potential complications consequences of surgery and his condition discussed at length. No guarantees made as to the outcome. All his questions have been answered informed consent was signed patient was taken from the preoperative holding area into the operating room. Placed on operating room table in the supine position a tourniquet was applied but not inflated during the entire procedure. The perfusion team to obtain the patient's blood and spun it into PRP which was applied to the wound. The right foot was scrubbed prepped and draped in the usual sterile fashion. The following procedure then began. Delayed primary closure right hallux surgical wound. Attention was directed to the right hallux #15 blade used to remove the retention stitch. Debridement of the tissue at the wound margins was performed full-thickness. The pulse lavage with vancomycin was used to irrigate the wound. There was no purulence expressed. There was no devitalized tissue in the wound. The wound was deemed adequate for closure and 3-0 Vicryl was used to reapproximate deep and subcutaneous tissue and 3-0 Prolene was used to reapproximate the skin margins. PRP had been applied to the wound bed site prior to closure. Postoperative bandaging included Adaptic, 4 x 4 gauze Kerlix and an Francisco wrap. Patient tolerated the anesthesia and the procedure well escorted the recovery room vital signs stable and vascular status intact to the right foot. Patient will return to the floor and continue IV antibiotics and await infectious disease recommendation on antibiotics.
--- NOTE | 2018-06-13 18:16 | Anesthesia Evaluation Post Op ---
Date of Encounter: 06/13/18 Time of Encounter: 18:16 - Hydration Hydration: Ice chips - Discharge PostOp Status: Transfer Patient to floor (Patient's vital signs have been reviewed. Patient is stable postoperatively and has adequately recovered from anesthesia. Patient is determined to have stable airway patency and respiratory function including respiratory rate and oxygen saturation. Patient has a stable heart rate, blood pressure and adequate hydration. Patients mental status is acceptable. Patients temperature is appropriate. Pain and nausea are adequately controlled.)
[2018-06-13] MEDS ORDERED: Ketorolac 15 MG/ML VIAL IVP PRN (18:29)
[2018-06-13] MEDS ORDERED: Naloxone 0.4 MG/ML INJ IVP PRN (18:29)
[2018-06-13] MEDS ORDERED: OXYCODONE Oral CONC 10 MG/0.5 ML ORAL.SYG SL PRN (18:29)
[2018-06-14] MEDS: Acetaminophen IV 1,000 MG/100 ML INFUS..BTL IVPB SCH ×2 (05:45→11:52)
--- NOTE | 2018-06-14 09:24 | Podiatry Progress Note ---
Date of Encounter: 06/14/18 Time of Encounter: 09:10 - Assessment and Plan (1) Open fracture of right great toe Current Visit: Yes Status: Acute Assessment: -Post op day #1 delayed primary closure right hallux surgical wound by Dr. Ramos on 06/13/2018 -Patient previously treated for open fracture of the right hallux, partial amputation left open to drain by Dr. Ramos -Surgical incision right hallux, sutures intact and coapting, no drainage noted, minimal erythema periwound due to inflammatory response, no lymphangitis, no signs of dehiscence noted -2/4 P/DP pulses -Cap refill less than 3 seconds all digits -WBC 9.7 and patient remains afebrile -Wound culture final for Staph. simulans and Staph. epidermidis Plan: -Dressing changed -Site flushed with sterile .9Ns and pat dry -Covered site with adaptic, 4x4 dry gauze, and Kerlix -Secured with YANA wrap -NWB RLE, will order CAM walker boot -Needs crutches -Recommend ID consult, any antibiotic recommendations greatly appreciated -Physical therapy -Follow up with Dr. Ramos in office one week after discharge Qualifiers: Encounter type: subsequent encounter Phalanx: distal Fracture alignment: displaced Fracture healing: with delayed healing Qualified Code(s): S92.421G - Displaced fracture of distal phalanx of right great toe, subsequent encounter for fracture with delayed healing Subjective Interval history: Post op day #1 delayed primary closure right hallux surgical wound by Dr. Ramos on 06/13/2018 Patient is sleeping, aroused easily with verbal stimuli, oriented x 3, and no acute distress noted. Patient previously treated for open fracture of the right hallux, partial amputation left open to drain by Dr. Ramos. Patient denies any chest pain, shortness of breath, or calf pain. Patient denies any fever, chills, nausea, vomiting, or diarrhea. Objective - Vital Signs Vital Signs: Vital Signs Temp Pulse Resp BP Pulse Ox 06/14/18 07:38 97.8 F 71 16 127/64 97 06/14/18 03:33 97.6 F 62 16 112/66 94 06/13/18 23:05 98.0 F 83 17 134/71 95 06/13/18 21:03 98.2 F 83 16 122/76 96 06/13/18 20:30 98.6 F 79 14 123/75 96 06/13/18 19:25 98.3 F 73 14 127/80 97 06/13/18 18:41 98.1 F 68 17 110/70 98 06/13/18 18:32 97.5 F L 77 14 110/70 100 06/13/18 18:18 98 F 65 14 117/70 97 06/13/18 18:08 70 14 112/69 96 06/13/18 17:58 68 14 112/63 96 06/13/18 17:48 98.8 F 64 14 96/53 98 06/13/18 16:11 98.5 F 66 16 100/64 97 06/13/18 10:41 98.1 F 70 16 104/66 96 Intake and Output 06/13/18 06/14/18 06/14/18 23:59 07:59 15:59 Intake Total 100 / 100 100 / 100 Output Total 3 / 3 Balance 97 / 97 100 / 100 Intake: IV Fluids 100 / 100 100 / 100 Ofirmev 1,000 mg/100 ml 1,000 100 / 100 mg In 100 ml @ 400 mls/hr IVPB Q6HR [facility] Rx#:[id number] Ancef 2,000 MG In 0.9 % Sodium 100 / 100 Chloride 100 ML @ 200 mls/hr IVPB Q8HR [facility] Rx#:[id number] Output: Estimated Blood Loss 3 / 3 Other: # Voids 3 Weight 78.6 kg Patient Weight 06/14/18 23:59 Weight 78.6 kg - Exam Exam: Constitutional: Sleeping, aroused easily, oriented x 3, no acute distress noted Vascular: 2/4 PT/DP pulses RLE and LLE, cap refill less than 3 seconds to all digits, skin warm from tibia to toes, no pain with calf squeeze Neurological: Sensation intact, normal plantar response, proprioception intact Dermatological: Surgical incision right hallux, sutures intact and coapting, no drainage noted, minimal erythema periwound due to inflammatory response, no lymphangitis, no signs of dehiscence noted Musculoskeletal: 4/5 muscle strength and normal tone - Lab Result Diagrams: 06/11/18 06:51 06/10/18 06:10 Labs: Abnormal lab results Neutrophils # 15.1 K/mcL (1.6-8.9) H 06/10/18 06:10 Creatinine 0.69 mg/dL (0.70-1.30) L 06/10/18 06:10 Glucose 138 mg/dL (70-105) H 06/10/18 06:10 Microbiology, Last 48 Hours 06/09/18 15:16 Surgical Biopsy Culture - Preliminary Right Foot Staphylococcus species 06/09/18 15:16 Surgical Biopsy Culture - Final Right Foot Staphylococcus simulans Staphylococcus epidermidis 06/09/18 15:16 Anaerobic Culture - Preliminary Right Foot At this time, no anaerobic growth is present. The culture will be finalized after 5 days of incubation. 06/09/18 15:16 Anaerobic Culture - Preliminary Right Foot At this time, no anaerobic growth is present. The culture will be finalized after 5 days of incubation. Consult Discharge Plan - Plan Referrals: NONE,PCP [Primary Care Provider] -
--- NOTE | 2018-06-14 11:08 | Infectious Disease Progress No ---
ID Progress Note Date of Encounter: 06/14/18 Time of Encounter: 10:10 - Subjective Subjective: Patient seen and examined. No acute events noted overnight. Status post delayed wound closure 06/13/[address] May. Reports pain 5 out of 10 at the surgical site at this time. Denies fevers, chills, or rigors. Denies chest pain, shortness of breath, or cough. Denies nausea, vomiting, diarrhea, or constipation. Denies abdominal pain or urinary complaints. Denies any oral thrush or new skin lesions. - Objective CBC & Chem 7: 06/11/18 06:51 06/10/18 06:10 - Exam Vitals: Temp Pulse Resp BP Pulse Ox 97.8 F 71 16 127/64 97 06/14/18 07:38 06/14/18 07:38 06/14/18 07:38 06/14/18 07:38 06/14/18 07:38 Exam: Head: Atraumatic, normal inspection, normocephalic. Eye: EOMI, PERRLA, no scleral icterus noted. ENT: Mucous membranes moist. No odontogenic infection noted. Neck: Normal inspection, no meningismus. Respiratory: Clear to auscultation. No rales, respiratory distress, rhonchi, or wheezes noted. Cardiovascular: Regular rate and rhythm, S1 and S2 audible. No murmurs, rubs, or gallops. GI: Soft, nondistended, normal bowel sounds. Extremities:No joint swelling, pedal edema, or tenderness noted. Right foot dressing clean, dry, and intact. Neurological: Alert, oriented 3, no focal deficits. Psychiatric: normal affect, normal mood. Skin: Dry, intact, warm. Normal color. No rashes. - Assessment and Plan (1) Open fracture of right great toe Status: Acute Secondary to traumatic injury. Status post partial amputation by Dr. Ramos 06/09/18. Intraoperative cultures are positive for staph simulans, staph epi, and staph caprae. Clinically doing well. No labs and obtained since 06/11/18. Currently on IV cefazolin. Qualifiers: Encounter type: subsequent encounter Phalanx: distal Fracture alignment: displaced Fracture healing: with delayed healing Qualified Code(s): S92.421G - Displaced fracture of distal phalanx of right great toe, subsequent encounter for fracture with delayed healing SNOMED Code(s): 341620517 (2) Partial traumatic amputation of right great toe Status: Acute Qualifiers: Encounter type: subsequent encounter Qualified Code(s): S98.121D - Partial traumatic amputation of right great toe, subsequent encounter SNOMED Code(s): 637424278 - Recommendations Recommendations: Await intraoperative cultures to finalize. Wound care per the podiatry team. Continue cefazolin 2 g IV every 8 hours. Duration of treatment depends on the clinical picture. Discussed with the Podiatry team. Will plan to transition to PO Keflex 500mg TID to complete a 7 day post-op course of antibiotics. Monitor renal function and dose adjust antibiotics. No further recommendations from the ID team. We will sign off. Please re-consult PRN. Consult Discharge Plan - Plan Additional Instructions: Non Weight bearing to RLE. Keep dressing clean dry and intact. Referrals: Emir Ramos, DPM [Partnered Physician] - 06/21/18 10:00 am NONE,PCP [Primary Care Provider] - Prescriptions: cephALEXin [Keflex] 500 mg PO BID 7 Days #14 capsule - Attending Attestation I have personally performed a face to face evaluation on this patient. I have reviewed and agree with the care plan. History and Exam by me shows: A/P: open fracture right great toe s/p ORIF no obvious infection cultures positive for staff d/c on keflex x 7 days
--- NOTE | 2018-06-14 14:15 | Discharge Summary ---
- NOTES TO OUTPATIENT PROVIDER Notes to Outpatient Provider: Follow-up with podiatry. To finish 7 days of IV antibiotics. Orders not resulted at time of discharge: Pending orders 06/09/18 15:16 Culture,Anaerobic [RM] Routine Culture,Anaerobic [RM] Routine Culture,Tissue (Biopsy) [RM] Stat Date of Encounter: 06/14/18 Time of Encounter: 14:14 - Discharge Diagnosis (1) Open fracture of right great toe Priority: Primary Status: Acute Qualifiers: Encounter type: subsequent encounter Phalanx: distal Fracture alignment: displaced Fracture healing: with delayed healing Qualified Code(s): S92.421G - Displaced fracture of distal phalanx of right great toe, subsequent encounter for fracture with delayed healing (2) Partial traumatic amputation of right great toe Priority: Primary Status: Acute Qualifiers: Encounter type: subsequent encounter Qualified Code(s): S98.121D - Partial traumatic amputation of right great toe, subsequent encounter Hospital course: Mr. Holt is a 17 year old male with no significant past medical history came in after injury with heavy equipment at work. Patient was found to have open displaced oblique fracture of first distal phalanx. Podiatry was consulted and patient underwent partial amputation of right great toe and excisional debri cruz on 06/09/18. Patient was continued on IV antibiotics and admitted for staged procedure. Patient underwent follow-up delayed primary closure and wash on 06/13/18. Infectious disease was consulted. Patient surgical biopsy grew Staphylococcus simulans, epidermidis. Patient was otherwise stable. Patient was discharged on oral antibiotics with Keflex 500 twice a day for 7 days per ID service recommendation. Patient otherwise stable to be discharged to follow-up with podiatry after one week. He will use cam walker boot and non- weightbearing on right lower extremity. Discharge discussed with: patient, nurse - Time Spent with Patient Total time spent providing and/or coordinating discharge services: Time spent: Greater than 30 minutes (40) - Discharge Medications Prescriptions: New cephALEXin [Keflex] 500 mg PO BID 7 Days #14 capsule Home Medications: cephALEXin [Keflex] 500 mg PO BID 7 Days #14 capsule 06/14/18 [Rx] Allergies/Adverse Reactions: Allergy/AdvReac Type Severity Reaction Status Date / Time ketorolac [From Toradol] AdvReac See Verified 06/14/18 01:21 Comments Date of admission: 06/12/18 06:24 Primary care physician: PCP NONE Consults: 06/13/18 16:01 Consult to Infectious Diseases [CONS] Routine Consulting Provider: Infectious Disease Trang Reason for Consult: open fracture with surgical specimen growing staph Call Completed: Yes 06/14/18 09:36 Consult to Physical Therapy [CONS] Routine Comment: Evaluate, develop and implement POC Reason for Consult: Right open fracture hallux, wound left open to drain, closed yesterday Does patient have active BEDREST order?: No Is patient medically & hemodynamically stable?: Yes Patient assessed for mobility or mobilized this visit?: Yes Discharging clinician: Zuleyka Choi - Constitutional Vitals: Temp Pulse Resp BP Pulse Ox 98.5 F 63 16 111/65 97 06/14/18 11:12 06/14/18 11:12 06/14/18 11:12 06/14/18 11:12 06/14/18 11:12 Exam: General: NAD Cardiovascualr: RRR, no MRG Lungs: CTAB. No adventitious sounds Abdomen: Soft nontender, nondistended MSK: Right foot with bandage on Neuro: no focal deficits - Patient Status Disposition: Home, Self-Care - Discharge Instructions Follow Up With: Emir Ramos DPM [Partnered Physician] - 06/21/18 10:00 am NONE,PCP [Primary Care Provider] - Additional Instructions: Non Weight bearing to RLE. Keep dressing clean dry and intact. - Diet and Activity Activity: as per physical therapy
--- NOTE | 2018-06-14 14:23 | Infectious Disease Consult ---
Infectious Disease-Consult - Encounter Date/Time Date of Encounter: 06/13/18 Time of Encounter: 17:48 - Data of Consult Patient: new to practice Reason for consult: antibiotics recommendations Requesting Physician: Zuleyka Choi MD Primary Care Provider: PCP NONE - HPI HPI: Patient is a 17-year-old gentleman who presented to [facility] 06/09/2018 for right toe injury with open fracture. Patient apparently had a happy peaceable equipme nt hopping on his foot. X-rays were done and was found to have an open fracture of the distal phalanx of the hallux and was transferred to [facility] for further workup and evaluation. Since admission patient has been afebrile, no tachycardia no tachypnea. Presenting lab revealed a WBC of 17.2 with 88% neutrophils. BUN 17 creatinine 0.69. On 06/09/2018 patient was taken to the OR we had partial excision of the great toe on the right at the interphalangeal joint level. Excisional debridement of soft tissue and bone right hallux Intra-Op cultures grew Staphylococcus simulans and Staphylococcus epidermidis. Patient was started on cefazolin. We were asked to evaluate the patient and make further recommendations. Currently, patient laying in bed. States he is in pain. just came back from surgery. op note pending sister at bedside - ROS Review of Systems: 10 point ROS done, negative other for what's mentioned in the HPI - Results CBC & Chem 7: 06/11/18 06:51 06/10/18 06:10 - Exam Vitals: Temp Pulse Resp BP Pulse Ox 98.5 F 66 16 100/64 97 06/13/18 16:11 06/13/18 16:11 06/13/18 16:11 06/13/18 16:11 06/13/18 16:11 Exam: HEAD: Normocephalic atraumatic EYES: PERRLA, EOMI, no conjunctival hemorrhage, sclera anicteric ENT: Mucous membranes moist, no oral thrush NECK: Supple. No meningeal signs. No masses LUNGS: Chest expanding symmetrically. Lungs sounds audible both lung ignacio. No wheezing, no rhonchi CV: RRR, S1S2, ABDOMEN: Soft, nontender, nondistended. Bowel sounds audible EXTREMITY: Adequate perfusion. surgically wrapped RX: No Known Home Drugs 06/09/18 [History] Allergy/AdvReac Type Severity Reaction Status Date / Time ketorolac [From Toradol] AdvReac See Verified 06/14/18 01:21 Comments - Assessment and Plan (1) Open fracture of right great toe Current Visit: Yes Status: Acute s/p partial amputation by Dr. Ramos / intra op cultures pansensitive staph spp has been on cefazolin clinically doing well continue cefazolin for now will d/w Dr. Ramos in AM, if he feels that the wound is clean, no further antibiotics needed on discharge. Qualifiers: Encounter type: subsequent encounter Phalanx: distal Fracture alignment: displaced Fracture healing: with delayed healing Qualified Code(s): S92.421G - Displaced fracture of distal phalanx of right great toe, subsequent encounter for fracture with delayed healing SNOMED Code(s): 125292341 (2) Partial traumatic amputation of right great toe Current Visit: Yes Status: Acute Qualifiers: Encounter type: subsequent encounter Qualified Code(s): S98.121D - Partial traumatic amputation of right great toe, subsequent encounter SNOMED Code(s): 398342007 Past Med Surg Social Fam HX - Past Medical History Medical history: no medical history Additional medical history: right elbow fracture when patient was younger Psychiatric history: no psych history - Past Surgical History Surgical History: no surgical history - Social History Smoking Status: Light tobacco smoker Smokeless Tobacco Status: Yes Alcohol use: none Drug use: none - Family History Father Hx Family Endocrine Disorder: Yes (diabetes) Consult Discharge Plan - Plan Referrals: NONE,PCP [Primary Care Provider] -
[2018-06-14 16:00] VITALS: BP 109/68
== END 2018-06-14 18:08 | disposition home or self-care (01) | DRG 465 ==
LOC: 3NENU → SUATTDRO 12:43
PROVIDERS: ADMIT Internal Medicine Nephrology; ATTEND Internal Medicine